=== PATIENT | male | born 1950 | race Caucasian/White ===

== ENCOUNTER → 2016-07-05 | Outpatient (CLI) | payer OTHER ==
--- NOTE | 2016-07-05 09:39 | US ---
EXAMINATION TYPE: US scrotum with doppler. Grayscale and color Doppler Duplex imaging performed of t leslie scrotum. DATE OF EXAM: 07/05/2016 9:04 AM COMPARISON: NONE CLINICAL HISTORY: N50.89 disorder male genitalia organs, left testicular pain and swelling EXAM MEASUREMENTS: TESTICLES: Right Testicle: 4.3 x 1.8 x 2.5 cm Left Testicle: 3.6 x 2.3 x 2.5 cm EPIDIDYMIS HEAD: Right Epididymis: 1.3 cm Left Epididymis: 1.0 cm Doppler performed to assess for testicular vascularity; good bilateral color flow and waveforms are s een. There is no evidence of testicular torsion. Large left hydrocele measuring 8.5 x 3.1 x 5.1cm Presence of varicoceles: no IMPRESSION: 1. Large left hydrocele
--- NOTE | 2016-07-08 08:20 | US ---
EXAMINATION TYPE: US prostate transrectal DATE OF EXAM: 07/05/2016 8:43 AM COMPARISON: Recent prostate ultrasound December 14, 2013 CLINICAL HISTORY: R97.20 elevated PSA. This examination was performed using the transrectal probe. EXAM MEASUREMENTS: Gland Size: 6.1 x 2.9 x 6.3 Volume: 58.2 Predicted PSA: 6.98 Actual PSA (if available):10.5 Patient unable to completely empty bladder making exam somewhat technically difficult. No focal lesio n visualized in peripheral zone, heterogeneous, enlarged gland. Prostate gland remains enlarged in size. No worrisome nodules are seen. IMPRESSION: Prostate gland is enlarged in size more prominent than prior study consistent with BPH. Actual PSA is currently elevated from predicted PSA and further investigation with ultrasound guided random biopsies to rule out malignancy is advised despite lack of visualization of suspicious nodule.
== END | disposition home or self-care (01) ==
LOC: RADUSMAIN 08:01
PROVIDERS: ATTEND Nurse Practitioner Adult Health
DX: N40.0 Benign prostatic hyperplasia without lower urinary tract symptoms (principal); N43.3 Hydrocele, unspecified; R97.20 Elevated prostate specific antigen [PSA]
CPT/HCPCS: 76870; 76872; 93975

== ENCOUNTER → 2019-09-21 | Outpatient (CLI) | payer OTHER ==
[2019-09-21 12:10] LABS: African American GFR (CKD) >90 (>60 ml/min/1.73 sqM); Blood Urea Nitrogen 13 mg/dL (9-20); Non-African American GFR(CKD) 90 (>60 ml/min/1.73 sqM)
--- NOTE | 2019-09-21 14:01 | CT ---
EXAMINATION TYPE: CT urogram wo/w con DATE OF EXAM: 09/21/2019 COMPARISON: None INDICATION: Gross hematuria. DLP: 1409 mGycm, Automated exposure control for dose reduction was used. CONTRAST: 100ml mL of Isovue 300. Study performed TECHNIQUE: Axial images were obtained from above the diaphragm to the pubic rami in the axial plane a t 5 mm thick sections. Reconstructed images are reviewed on the computer in the coronal plane. FINDINGS: Limited CT sections are obtained the lung bases. The lung bases are clear. Coronary artery calcific ation is present. CT ABDOMEN: Liver: Normal Spleen: Normal Pancreas: Normal Adrenal glands: The adrenal glands are normal. Gallbladder: Normal Kidneys: No masses are evident. No hydronephrosis is present. No cysts are present. Delayed images were obtained through the kidneys, which remain unremarkable. Reconstructed images in 3-D reconstruc tion images of the renal collecting system are performed on a separate computer by the technologist. No suspicious filling defects are evident. Aorta: Vascular calcification is within the aorta. Inferior vena cava: Normal. CT PELVIS: Loops of bowel within the abdomen and pelvis are normal. There are loops of bowel which are incom pletely distended or lack oral contrast limiting their evaluation. Appendix: Normal as visualized. Urinary bladder: No filling defects are identified Genitourinary structures: Prostate is very prominent. This has inferior impression on the urinary srinivas dder. Osseous structures: No suspicious lytic or sclerotic lesions. IMPRESSIONS: 1. Prominent prostate with the inferior impression on the urinary bladder. 2. No suspicious abnormality to account for patient's symptoms.
== END | disposition home or self-care (01) ==
LOC: RADCTMAIN 11:23
PROVIDERS: ATTEND Urology
DX: R31.9 Hematuria, unspecified (principal)
CPT/HCPCS: 82565; 84520; 74178; 36415; 74400; Q9967